=== PATIENT | female | born 1985 | race Caucasian/White ===

== ENCOUNTER 2020-11-09 23:56 | Emergency (ER) | payer OTHER ==
[~2020-11-09 23:56] MED LIST: IBUPROFEN600 MG PO; IRON325 M1 PO; NAPROSYN500 MG PO; NORCO 5-325 TA1 EACH PO; NORFLEX 100 MG100 MG PO; SILVADENE CREAM20 GM TOP; Voltaren Gel 1% TOP; ZOFRAN4 MG PO; ZYRTEC-D TABLE1 EACH PO
[2020-11-10] MEDS ORDERED: CLINDAMYCIN HC150 MG PO (05:30)
[2020-11-10] MEDS ORDERED: IBUPROFEN800 MG PO (05:31)
== END 2020-11-10 06:09 | disposition home or self-care (01) ==
LOC: ER1 23:56
DX: S02.2XXA Fracture of nasal bones, initial encounter for closed fracture (principal); Z88.1 Allergy status to other antibiotic agents; Y04.2XXA Assault by strike against or bumped into by another person, initial encounter; Y92.009 Unspecified place in unspecified non-institutional (private) residence as the place of occurrence of the external cause
CPT/HCPCS: 70486; 99283

== ENCOUNTER 2021-12-11 20:42 | Emergency (ER) | payer OTHER ==
[~2021-12-11 20:42] MED LIST changes: +CLINDAMYCIN HC150 MG PO; +IBUPROFEN800 MG PO; +LOPRESSOR 25 MG25 MG PO; +OMNICEF 300 MG300 MG PO
== END 2021-12-11 21:18 | disposition home or self-care (01) ==
LOC: ER1 20:42
DX: Z03.89 Encounter for observation for other suspected diseases and conditions ruled out (principal)
CPT/HCPCS: 99282